=== PATIENT | female | born 1985 | race African-American/Black ===

== ENCOUNTER 2024-10-26 20:16 | Emergency (ER) | payer OTHER ==
[~2024-10-26] VITALS: Ht 152.4 cm; Wt 108.9 kg
[2024-10-26 21:06] VITALS: PULSE 60; RESP 18; TEMP 98.1
[2024-10-26 21:07] VITALS: BP 133/87; PULSE 60; RESP 18; TEMP 98.1; O2SAT 100
== END 2024-10-26 21:10 | disposition home or self-care (01) ==
LOC: FSED 20:45
DX: S00.03XA Contusion of scalp, initial encounter (principal); S40.212A Abrasion of left shoulder, initial encounter; V28.41XA Electric (assisted) bicycle driver injured in noncollision transport accident in traffic accident, initial encounter; Y93.55 Activity, bike riding; Y92.488 Other paved roadways as the place of occurrence of the external cause; F32.A Depression, unspecified
CPT/HCPCS: 99283